=== PATIENT | male | born 1940 | race Caucasian/White ===

== ENCOUNTER 2020-11-29 05:38 | Emergency (ER) | payer MEDICARE, OTHER ==
[2020-11-29 05:51] VITALS: BP 145/85; PULSE 93
--- NOTE | 2020-11-29 06:17 | EDM.PDOC ---
<Officer[employer]encion - Last Filed: 11/29/20 06:16> ED HPI GENERAL MEDICAL PROBLEM - General Chief Complaint: Genitourinary Problem Stated Complaint: SWOLLEN TESTICAL Time Seen by Provider: 11/29/20 06:12 Source of Information: Reports: Patient, Family, RN Notes Reviewed History Limitations: Reports: No Limitations - History of Present Illness INITIAL COMMENTS - FREE TEXT/NARRATIVE: 80-year-old gentleman presents emergency department day complaint left swollen testicle, he states he injured himself about a week ago with a tractor but did not have any troubles afterwards and then last night started having redness and swelling in that testicle and has progressively gotten worse has any fevers Left Scrotum Pain Score (Numeric/FACES): 2 - Related Data Allergies Allergy/AdvReac Type Severity Reaction Status Date / Time Penicillins Allergy Itching Verified 11/29/20 06:03 tuberculin, purified protein Allergy Rash Verified 11/29/20 06:03 deriva [tuberculin,purif.prot.deriv.] Home Meds: Home Meds Multivitamin with Minerals [Multiple Vitamin] 1 tab PO DAILY 05/26/14 [History] Acton-3 Fatty Acids [Acton-3] 1,000 mg PO DAILY 05/26/14 [History] amLODIPine [Norvasc] 10 mg PO DAILY 05/26/14 [History] Cholecalciferol (Vitd3)/Vit K2 [D3 + K2 Dots 1,000 Unit] 1 each PO DAILY 05/30/14 [History] Cinnamon Bark [Cinnamon] 1,000 mg PO DAILY 05/30/14 [History] Cyanocobalamin (Vitamin B-12) [B-12] 500 mcg PO DAILY 05/30/14 [History] Garlic [Garlique] 5,000 mcg PO DAILY 05/30/14 [History] Lutein/Minerals/Vit A,C & E [Ocuvite] 1 tab PO DAILY 05/30/14 [History] Fluticasone Propionate [Flovent HFA 110 MCG] 1 puff INH BID 01/22/16 [History] Ascorbic Acid [C-500] 500 mg PO DAILY 04/01/16 [History] Gabapentin [Neurontin] 300 mg PO BEDTIME 05/27/16 [History] Aspirin 81 mg PO DAILY 09/30/16 [History] Levalbuterol Tartrate [Xopenex HFA Inh] 2 puff INH BID 11/29/20 [History] Metoprolol Succinate 1 tab PO DAILY 11/29/20 [History] Ranolazine [Ranexa] 1 tab PO BID 11/29/20 [History] Past Medical History HEENT History: Reports: Cataract, Impaired Vision Other HEENT History: wears glasses Cardiovascular History: Reports: Arrhythmia, High Cholesterol, Hypertension, SOB on Exertion Respiratory History: Reports: Bronchitis, Recurrent, Sleep Apnea Gastrointestinal History: Reports: Colon Polyp, Diverticulosis, Hemorrhoids, Helicobacter Pylori, Hiatal Hernia Musculoskeletal History: Reports: Arthritis, Fracture, Osteoarthritis, Other (See Below) Other Musculoskeletal History: tibia fracture, fracture Neurological History: Reports: Migraines Endocrine/Metabolic History: Reports: Obesity/BMI 30+ Hematologic History: Reports: B12 Deficiency - Infectious Disease History Infectious Disease History: Reports: Chicken Pox, Mumps - Past Surgical History HEENT Surgical History: Reports: Adenoidectomy, Cataract Surgery, Oral Surgery, Tonsillectomy, Other (See Below) Other HEENT Surgeries/Procedures: x3 growths taken off [employer]box Cardiovascular Surgical History: Reports: None Respiratory Surgical History: Reports: None GI Surgical History: Reports: Colonoscopy, EGD, Hernia, Inguinal, Hernia Repair/Other, Bertram Fundoplication, Other (See Below) Other GI Surgeries/Procedures: bertram Endocrine Surgical History: Reports: None Neurological Surgical History: Reports: None Musculoskeletal Surgical History: Reports: Carpal Tunnel, Knee Replacement, Other (See Below) Other Musculoskeletal Surgeries/Procedures:: tibia fracture repair Dermatological Surgical History: Reports: Skin Biopsy Social & Family History - Family History HEENT: Reports: Cataract, Glaucoma, Macular Degeneration Cardiac: Reports: Arrhythmia, Heart Failure, High Cholesterol, Hypertension, Pacemaker, SOB on Exertion, Stent Respiratory: Reports: Asthma, COPD, Sleep Apnea, TB Musculoskeletal: Reports: Arthritis, Gout Neurological: Reports: CVA, Migraines Endocrine/Metabolic: Reports: Diabetes, type II Oncologic: Reports: Esophageal, Lung, Other (See Below) Other Oncologic Family History: stomach - Tobacco Use Tobacco Use Status *Q: Former Tobacco User Used Tobacco, but Quit: Yes Month/Year Tobacco Last Used: 04/1966 - Caffeine Use Caffeine Use: Reports: Coffee - Recreational Drug Use Recreational Drug Use: No ED ROS GENERAL - Review of Systems Review Of Systems: See Below Constitutional: Reports: No Symptoms : Reports: Other (Left swollen testicle) ED EXAM, RENAL/ - Physical Exam Exam: See Below Text/Narrative:: Examination of the testes the left testicle is markedly enlarged it is erythematous it is tender to the touch Exam Limited By: No Limitations General Appearance: Alert, WD/WN, No Apparent Distress Departure - Departure Disposition: Home, Self-Care 01 Clinical Impression: Hydrocele in adult - Discharge Information Instructions: Hydrocele, Adult Referrals: Roly Kerns NP [Primary Care Provider] - Additional Instructions: Dr. Paredes urology office and [facility] will contact you Sepsis Event Note (ED) - Evaluation Sepsis Screening Result: No Definite Risk <Андрей Obando - Last Filed: 11/29/20 09:49> ED HPI GENERAL MEDICAL PROBLEM - General Source of Information: Reports: Patient, Family, RN Notes Reviewed History Limitations: Reports: No Limitations (80-year-old ballesteros who historically has had some swelling on the left scrotal area has been driving tractor bouncing around extensively and 1 week ago noted swelling larger than usual in the left scrotum. With discomfort. He put some ice on it and it got better. Yesterday he was again out driving) ED ROS GENERAL - Review of Systems Review Of Systems: Comprehensive ROS is negative, except as noted in HPI. ED EXAM, RENAL/ - Physical Exam Exam: See Below Text/Narrative:: General exam is unremarkable. HEENT shows eyes ears nose and throat appear to be okay with no acute changes without focal changes no facial droop. Neck is supple normal range of motion Chest is clear regular rate and rhythm no abnormal sounds Abdomen is large but nontender without mass except that he has a generally nontender swollen area in the right groin area where he had prior surgery. External genitalia shows that he has a somewhat tense somewhat tender notably swollen but not ecchymotic left scrotal content compatible with hydrocele. Also has mild tenderness and slight swelling on the right scrotum as well Lower extremities show some the scars apparently from prior surgery but no edema Skin is normal without rash Neurologic physiologic DTR and tone Exam Limited By: No Limitations General Appearance: Alert, WD/WN, No Apparent Distress Course - Vital Signs Text/Narrative:: I discussed with the radiologist the ultrasound findings and he concurs that there is a hydroceles bilaterally but much larger on the left. There is also some cysts in the vas apparently. Does not appear to be something needing surgical intervention. I will attempt to get a referral to urology. Meanwhile he should apply ice and try to avoid the injury that he was doing before but he says he has to get back on his tractor. Dr. Reggie jamil and My[facility] is contacted at 9:45 AM and he will contact the patient and see him in the office in [place] Last Recorded V/S: Last Vital Signs Temp 36.3 C 11/29/20 05:53 Pulse 93 11/29/20 05:53 Resp 16 11/29/20 05:53 BP 145/85 H 11/29/20 05:53 Pulse Ox 95 11/29/20 05:53 - Orders/Labs/Meds Orders: Active Orders 24 hr Category Date Time Status Scrotal Duplex Ltd [US] Stat Exams 11/29/20 Taken Departure - Departure Time of Disposition: 10:00 Sepsis Event Note (ED) - Focused Exam Vital Signs: Vital Signs Temp Pulse Resp BP Pulse Ox 11/29/20 05:53 36.3 C 93 16 145/85 H 95 11/29/20 05:50 36.3 C 93 16 145/85 H 95 - My Orders Last 24 Hours: My Active Orders 11/29/20 Scrotal Duplex Ltd [US] Stat - Assessment/Plan Last 24 Hours: My Active Orders 11/29/20 Scrotal Duplex Ltd [US] Stat
--- NOTE | 2020-11-29 09:43 | US ---
Scrotal Duplex Ltd, Scrotum and Contents CLINICAL HISTORY: Swollen left scrotum FINDINGS: Real-time and Doppler images were obtained through the scrotum. Right testicle measures 3.9 x 2.5 x 2.2 cm. The epididymis contains a 7 x 8 x 7 mm cyst. There is a small to moderate hydrocele. There is generalized increased echotexture throughout the testicular parenchyma without focal mass. There is normal flow Left testicle measures 5.0 x 3.5 x 3.3 cm. There is an complex area within the testicle consistent with rete testes. The epididymis contains 2 cystic foci one measuring 1.6 x 1.1 x 1.3 cm. The second measures 0.9 x 1.0 x 0.3 cm. There is a large left hydrocele. There are some internal echoes which appear to be some septations. There is left scrotal thickening. IMPRESSION: Large complex left hydrocele. This may be related to some previous hemorrhage. There is some lateral scrotal thickening Normal flow both testicles Rete testis on the left Bilateral epididymal cysts left larger than right
== END 2020-11-29 10:23 | disposition home or self-care (01) ==
LOC: JP.ED 05:38
DX: N43.3 Hydrocele, unspecified (principal); I10 Essential (primary) hypertension; M19.90 Unspecified osteoarthritis, unspecified site; E66.9 Obesity, unspecified; Z68.35 Body mass index [BMI] 35.0-35.9, adult; Z87.891 Personal history of nicotine dependence; Z88.0 Allergy status to penicillin; Z91.048 Other nonmedicinal substance allergy status; Z79.82 Long term (current) use of aspirin; Z79.899 Other long term (current) drug therapy
CPT/HCPCS: 76870; 76870-26; 93976; 93976-26; 99284-25

== ENCOUNTER 2024-08-05 14:20 | Emergency (ER) | payer MEDICARE, OTHER ==
[2024-08-05] MEDS: Lidocaine 1% 20 ML MDV INJECT ONE (16:38)
[2024-08-05 17:06] VITALS: BP 119/77; PULSE 75
[2024-08-05] MEDS: ceFAZolin 1 GM Vial IM ONE (17:52)
[2024-08-05] MEDS: Water For Injection, Sterile 20 ML ONE (18:01)
[2024-08-05] MEDS: Water For Injection, Sterile 10 ML SDV INJECT ONE (18:02)
== END 2024-08-05 18:20 | disposition home or self-care (01) ==
LOC: JP.ED 14:20
DX: T81.31XA Disruption of external operation (surgical) wound, not elsewhere classified, initial encounter (principal); E78.00 Pure hypercholesterolemia, unspecified; I10 Essential (primary) hypertension; Z87.891 Personal history of nicotine dependence; Z91.018 Allergy to other foods; Z88.0 Allergy status to penicillin; Z88.8 Allergy status to other drugs, medicaments and biological substances; Z79.899 Other long term (current) drug therapy
CPT/HCPCS: 96372; 99283; J0690